=== PATIENT | female | born 2000 | race Caucasian/White ===

== ENCOUNTER 2022-01-26 03:14 | Emergency (ER) | payer MEDICAID, SELFPAY ==
[2022-01-26 03:39] VITALS: BP 112/78; BP 114/76; PULSE 87; PULSE 98; RESP 14; TEMP 36.5; O2SAT 97; O2SAT 98; BMI 19.2
--- NOTE | 2022-01-26 03:45 | PC.NURSE ---
pt doesnt want to be seen, pt stated the ambulance company wanted her to be seen due to her arm pain. pt states she didnt want to come and now is leaving. pt is alert and oriented. steady gait.
--- NOTE | 2022-01-26 04:39 | PC.NURSE ---
pt mom came and picked up the pt . pt not in the waiting room at this time.
== END 2022-01-26 04:40 | disposition left against medical advice (07) ==
PROVIDERS: Emergency Provider Emergency Medicine
DX: M79.601 Pain in right arm (principal)
CPT/HCPCS: 99281